=== PATIENT | male | born 1985 | race Caucasian/White ===

== ENCOUNTER 2019-01-13 20:25 | Emergency (ER) | payer MEDICAID ==
[~2019-01-13] VITALS: Ht 190.5 cm; Wt 95.3 kg
--- NOTE | 2019-01-13 20:47 | NUR ---
Patient to ER bed 5 to gown for evaluation. Side rails up. Report received from VIRGIE Roth.
[2019-01-13 20:50] VITALS: BP_SYST 131
--- NOTE | 2019-01-13 20:51 | NUR ---
Pt complains of blister to shaft of genital. Pt states he noticed it Sunday and on Sunday he had a fever. Pt also states there is a blister to right foot as well. No other injuries/complaints per patient or noted.
--- NOTE | 2019-01-13 21:02 | NUR ---
ER Dr. Gonzales at bedside examining patient.
--- NOTE | 2019-01-13 21:25 | NUR ---
[facility] at bedside obtaining blood work. Pt tolerated well.
[2019-01-13 21:31] LABS: BASOPHILS # (AUTO) 0.1 K/uL (0.0-0.2); EOSINOPHILS # (AUTO) 0.1 K/uL (0.0-0.4); EOSINOPHILS % (AUTO) 1.8 % (0.0-4.0); HEMOGLOBIN 15.7 g/dL (14.0-18.0); LYMPHOCYTES # (AUTO) 1.9 K/uL (1.0-5.5); MEAN CORPUSCULAR HEMOGLOBIN 28 pg (27-31); MEAN CORPUSCULAR HGB CONC 34 % (32-36); MEAN CORPUSCULAR VOLUME 84 fL (79.0-98.0); MONOCYTES # (AUTO) 0.5 K/uL (0.0-1.0); NEUTROPHILS # (AUTO) 3.1 K/uL (1.8-7.7); NEUTROPHILS % (AUTO) 54.2 % (40.0-70.0); PLATELET COUNT (AUTO) 202 K/uL (130-430); RED BLOOD CELL COUNT(AUTO) 5.51 MIL/uL (4.2-6.2); WHITE BLOOD COUNT (AUTO) 5.7 K/uL (4.8-10.8)
[2019-01-13 21:49] LABS: BILIRUBIN,URINE NEGATIVE (NEGATIVE); BLOOD, URINE NEGATIVE (NEGATIVE); CLARITY/URINE CLEAR (CLEAR); COLOR,URINE YELLOW (YELLOW); GLUCOSE,URINE NEGATIVE (NEGATIVE); KETONES,URINE NEGATIVE (NEGATIVE); LEUKOCYTE ESTERASE ,URINE NEGATIVE (NEGATIVE); NITRITE, URINE NEGATIVE (NEGATIVE); PH,URINE 6.5 (5.0-8.0); PROTEIN URINE NEGATIVE (NEGATIVE); UROBILINOGEN,URINE 0.2 (0.2-1.0)
[2019-01-13 21:51] LABS: CREATININE 1.08 mg/dL (0.55-1.30); POTASSIUM 4.2 mmol/L (3.5-5.1)
[2019-01-13 21:57] LABS: TOTAL BILIRUBIN 0.5 mg/dL (0.0-1.0)
--- NOTE | 2019-01-13 22:40 | NUR ---
ER Dr. Gonzales at bedside explaining results to patient.
[2019-01-13] MEDS ORDERED: HYDROcodone/ACETAMIN 5-325 MG TAB (NORCO/ VICODIN) PO ONE (22:45)
[2019-01-13 23:17] VITALS: BP_SYST 129
--- NOTE | 2019-01-13 23:17 | NUR ---
Patient given written and verbal discharge instructions and verbalizes understanding. ER MD discussed with patient the results and treatment provided. Patient in stable condition. ID arm band removed. Rx of Acyclovir, tylenol with codeine, and ibuprofen given. Patient educated on pain management and to follow up with PMD. Pain Scale 0. Opportunity for questions provided and answered. Medication side effect fact sheet provided.
[2019-01-16 12:20] LABS: CHLAMYDIA TRACHOMATIS NAA Negative (Negative); NEISSERIA GONORRHOEAE NAA Negative (Negative)
[2019-01-25 12:46] LABS: FTA-Ab (T PALLIDUM) Non Reactive (Non Reactive)
[2019-02-10 18:43] LABS: HSV 2 IgG, TYPE SPECIFIC <0.91
== END 2019-01-13 23:17 | disposition home or self-care (01) ==
LOC: SED 20:25
DX: B00.9 Herpesviral infection, unspecified (principal); N48.89 Other specified disorders of penis; R21 Rash and other nonspecific skin eruption
CPT/HCPCS: 36415; 80053; 81003; 85025; 86592; 86695; 86696; 86780; 87491; 87591; 99283

== ENCOUNTER 2019-01-17 18:48 | Emergency (ER) | payer MEDICAID ==
[~2019-01-17] VITALS: Ht 185.4 cm; Wt 95.3 kg
[2019-01-17 19:05] VITALS: BP_SYST 135
[2019-01-17] MEDS ORDERED: BACITRACIN 1 GM OINT TP ONE (19:22)
[2019-01-17] MEDS ORDERED: PENICILLIN G BENZATHINE 1.2 MMU/2 ML SYR IM ONE (19:45)
[2019-01-17] MEDS ORDERED: ONDANSETRON 4 MG ODT TAB PO ONE (20:15)
[2019-01-17 20:22] VITALS: BP_SYST 135
[2019-01-19 11:05] LABS: HEPATITIS A AB, IgM Negative (Negative); HEPATITIS B CORE AB, IgM Negative (Negative); HEPATITIS B SURFACE AG Negative (Negative)
== END 2019-01-17 20:18 | disposition home or self-care (01) ==
LOC: SED 18:48
DX: A53.9 Syphilis, unspecified (principal); R03.0 Elevated blood-pressure reading, without diagnosis of hypertension
CPT/HCPCS: 36415; 70450; 80074; 96372; 99284; J0561; Q0162

== ENCOUNTER 2019-02-08 18:54 | Emergency (ER) | payer MEDICAID ==
[~2019-02-08] VITALS: Ht 190.5 cm; Wt 95.3 kg
[2019-02-08 19:25] VITALS: BP_SYST 151
[2019-02-08 21:55] VITALS: BP_SYST 142
[2019-02-11 01:14] LABS: CHLAMYDIA TRACHOMATIS NAA Negative (Negative); NEISSERIA GONORRHOEAE NAA Negative (Negative)
== END 2019-02-08 21:55 | disposition home or self-care (01) ==
LOC: SED 18:54
DX: A53.9 Syphilis, unspecified (principal)
CPT/HCPCS: 36415; 86592; 86780; 87491; 87591; 99283

== ENCOUNTER 2019-02-09 00:03 | Emergency (ER) | payer MEDICAID ==
[~2019-02-09] VITALS: Ht 190.5 cm; Wt 95.3 kg
[2019-02-09 00:03] VITALS: BP_SYST 138
--- NOTE | 2019-02-09 00:03 | NUR ---
Patient to ER bed 2 to gown for evaluation. Side rails up.
--- NOTE | 2019-02-09 00:10 | NUR ---
Pt came to the ED earlier for STD issues. Reports he was recently discharged with presciption for penicillin. Reports he was sitting at home and watching TV when he noticed numbness and tingling of L arm with suden chest pain. Denies SOB but reports some diaphoresis. Denies n/v/d or fever. No other complaints/injuries noted. Will cont. to monitor.
--- NOTE | 2019-02-09 00:15 | NUR ---
ER at bedside examining patient.
[2019-02-09 01:25] LABS: BASOPHILS # (AUTO) 0.1 K/uL (0.0-0.2); BASOPHILS % (AUTO) 1.2 % (0.0-2.0); EOSINOPHILS # (AUTO) 0.1 K/uL (0.0-0.4); HEMATOCRIT 44.2 % (36-54); HEMOGLOBIN 15.3 g/dL (14.0-18.0); LYMPHOCYTES # (AUTO) 2.9 K/uL (1.0-5.5); LYMPHOCYTES % (AUTO) 44.9 % (20.5-51.5); MEAN CORPUSCULAR HEMOGLOBIN 29 pg (27-31); MEAN CORPUSCULAR HGB CONC 35 % (32-36); MEAN CORPUSCULAR VOLUME 84 fL (79.0-98.0); MONOCYTES # (AUTO) 0.6 K/uL (0.0-1.0); MONOCYTES % (AUTO) 9.6 % (1.7-9.3); NEUTROPHILS # (AUTO) 2.7 K/uL (1.8-7.7); NEUTROPHILS % (AUTO) 42.3 % (40.0-70.0); PLATELET COUNT (AUTO) 173 K/uL (130-430); RED BLOOD CELL COUNT(AUTO) 5.28 MIL/uL (4.2-6.2); RED CELL DISTRIBUTION WIDTH 13.8 % (9.0-15.0); WHITE BLOOD COUNT (AUTO) 6.5 K/uL (4.8-10.8)
[2019-02-09 01:31] LABS: ANION GAP 4 (5-15); CALCIUM 8.9 mg/dL (8.4-11.0); CHLORIDE 104 mmol/L (98-107); CREATININE 1.07 mg/dL (0.55-1.30); GLUCOSE 87 mg/dL (70-99); POTASSIUM 3.9 mmol/L (3.5-5.1); SODIUM SERUM 137 mmol/L (136-145); UREA NITROGEN, BLOOD 17 mg/dL (8-21)
[2019-02-09 01:35] LABS: GFR AFRICAN AMERICAN 103 mL/min (>90)
[2019-02-09 01:39] LABS: ALANINE AMINOTRANSFERASE 31 U/L (12-78); ALBUMIN 3.8 g/dL (3.4-4.8); ASPARTATE AMINOTRANSFERASE 16 U/L (10-37); TOTAL BILIRUBIN 0.5 mg/dL (0.0-1.0)
[2019-02-09 02:25] VITALS: BP_SYST 126
--- NOTE | 2019-02-09 02:25 | NUR ---
Patient given written and verbal discharge instructions and verbalizes understanding. ER MD Dr. Richards discussed with patient the results and treatment provided. Patient in stable condition. ID arm band removed. Patient educated on pain management and to follow up with PMD. Pain Scale 0/10. Opportunity for questions provided and answered. Medication side effect fact sheet provided.
== END 2019-02-09 02:25 | disposition home or self-care (01) ==
LOC: SED 00:03
DX: R07.9 Chest pain, unspecified (principal)
CPT/HCPCS: 36415; 71045; 80053; 84484; 85025; 93005; 99284